=== PATIENT | male | born 1945 | race Caucasian/White ===

== ENCOUNTER 2018-11-02 08:24 | Inpatient (IN) | payer MEDICARE, OTHER ==
[2018-11-02] VITALS (7 sets, daily range): BP systolic 95–128; BP diastolic 59–88
[~2018-11-02] VITALS: Ht 188 cm; Wt 108.0 kg
--- NOTE | 2018-11-02 08:46 | NUR ---
Pt changing into gown sitting on gurlatricia. PARMINDER. windows migration technician at bedside. Pt's at bedside. Pt states, "I had a kidney transplant in 2010, it was a woman's kidney from [place], so now I cry at movies...". Pt denies cp, sob, n/v/d, syncope, or trauma. Pt states, "my arm (left arm) is swollen." Pt has fistula in place on left upper arm. Pt states, "it collapsed".
[2018-11-02] MEDS ORDERED: DILTIAZEM 5 MG/ML, 5ML IV ONE (09:00)
[2018-11-02] MEDS ORDERED: SODIUM CHLORIDE FLUSH 10ML SYR IVF ONE (09:00)
[2018-11-02] MEDS ORDERED: DILTIAZEM 5 MG/ML, 10ML ONE (09:05)
[2018-11-02 09:26] LABS: BASOPHILS # (AUTO) 0.05 x10^3/uL (0-0.1); BASOPHILS % (AUTO) 1 % (0-1); EOSINOPHILS # (AUTO) 0.26 x10^3/uL (0-0.4); EOSINOPHILS % (AUTO) 4 % (1-7); LYMPHOCYTES # (AUTO) 0.68 x10^3/uL (1-3.4); LYMPHOCYTES % (AUTO) 11 % (22-44); MD NO; MEAN CORPUSCULAR HEMOGLOBIN 31.4 pg (27.5-34.5); MEAN CORPUSCULAR VOLUME 98.1 fL (81-97); MEAN PLATELET VOLUME 9.1 fL (7.4-10.4); MONOCYTES # (AUTO) 0.62 x10^3/uL (0.2-0.8); MONOCYTES % (AUTO) 10 % (2-9); NEUTROPHILS # (AUTO) 4.69 x10^3/uL (1.8-6.8); NEUTROPHILS % (AUTO) 74 % (42-75); PLATELET COUNT 146 x10^3/uL (130-400); RED BLOOD COUNT 5.53 x10^6/uL (4.38-5.82); RED CELL DISTRIBUTION WIDTH 16.6 % (9.4-14.8)
[2018-11-02] MEDS ORDERED: PLEASE ENTER HEIGHT AND WEIGHT MC SCH (09:30)
[2018-11-02 09:34] LABS: ALANINE AMINOTRANSFERASE 49 U/L (12-78); ALBUMIN 4.1 g/dL (3.4-5.0); ANION GAP 8 mmol/L (5-15); CALCIUM 9.1 mg/dL (8.5-10.1); CHLORIDE 116 mmol/L (98-107)
[2018-11-02 09:35] LABS: D-DIMER 0.99 ug/mlFEU (0.00-0.52); INTERNATIONAL NORMALIZED RATIO 1.45 (0.93-1.1)
[2018-11-02 09:39] LABS: ALKALINE PHOSPHATASE 68 U/L (45-117); BILIRUBIN,TOTAL 1.4 mg/dL (0.2-1.0); CREATININE 1.79 mg/dL (0.7-1.3); TOTAL PROTEIN 6.6 g/dL (6.4-8.2)
[2018-11-02] MEDS ORDERED: SODIUM CHLORIDE 0.9% 1,000ML IVBOLUS ONE (10:30)
[2018-11-02] MEDS ORDERED: DIGOXIN 0.25 MG/ML, 2ML ONE (10:52)
[2018-11-02] MEDS ORDERED: DIGOXIN 0.25 MG/ML, 2ML IVPush ONE (11:00)
[2018-11-02] MEDS ORDERED: MYCO250C4 PO (11:11)
[2018-11-02] MEDS ORDERED: TACR1CAP4 PO (11:12)
[2018-11-02] MEDS ORDERED: SIMV40TA3 PO (11:13)
[2018-11-02] MEDS ORDERED: PRED5TAB PO (11:13)
[2018-11-02] MEDS ORDERED: METO25TA35 PO (11:13)
[2018-11-02] MEDS ORDERED: LISI40TA PO (11:14)
[2018-11-02] MEDS ORDERED: ASPI-650 PO (11:15)
[2018-11-02] MEDS ORDERED: AMLO-150 PO (11:15)
--- NOTE | 2018-11-02 11:24 | NUR ---
[facility] TELEPHONE HAND-OFF REPORT GIVEN TO DULCE YO.
[2018-11-02 12:02] LABS: TROPONIN I < 0.015 ng/mL (0.000-0.045)
--- NOTE | 2018-11-02 12:04 | NUR ---
Pt transfered to floor from ED and left with all personal belongings.
[2018-11-02] MEDS ORDERED: HEPARIN 5,000 UNITS/ML, 1ML IV PRN (12:30)
[2018-11-02] MEDS ORDERED: METOPROLOL 1 MG/ML, 5ML IVPush ONE ×2 (12:30→16:00)
[2018-11-02] MEDS ORDERED: HEPARIN 5,000 UNITS/ML, 1ML IV ONE (12:30)
[2018-11-02] MEDS: DIGOXIN 0.25 MG TABLET PO SCH (15:42)
[2018-11-02] MEDS: HEPARIN 25,000 UNITS/500ML PMX 500 ML IV PRN (15:42)
[2018-11-02 18:38] LABS: TROPONIN I < 0.015 ng/mL (0.000-0.045)
[2018-11-02] MEDS ORDERED: DILTIAZEM 5 MG/ML, 5ML IVPush ONE (19:00)
[2018-11-02] MEDS: METOPROLOL TARTRATE 25 MG TABLET PO SCH (21:17)
[2018-11-02] MEDS: TACROLIMUS 1 MG CAPSULE PO SCH (21:17)
[2018-11-02] MEDS: SIMVASTATIN 40 MG TABLET PO SCH (21:18)
[2018-11-03] MEDS ORDERED: DILTIAZEM 125 MG in SODIUM CHLORIDE 0.9% 100 ML IV SCH (00:30)
[2018-11-03 02:08] VITALS: BP 136/63
[2018-11-03 03:33] VITALS: BP 118/75
[2018-11-03] MEDS: DILTIAZEM 125 MG in SODIUM CHLORIDE 0.9% 100 ML IV SCH ×3 (05:00→23:36)
[2018-11-03] MEDS: ASPIRIN 81 MG TABLET EC PO SCH (06:14)
[2018-11-03 06:35] LABS: BASOPHILS # (AUTO) 0.05 x10^3/uL (0-0.1); BASOPHILS % (AUTO) 1 % (0-1); EOSINOPHILS # (AUTO) 0.28 x10^3/uL (0-0.4); EOSINOPHILS % (AUTO) 5 % (1-7); LYMPHOCYTES # (AUTO) 0.85 x10^3/uL (1-3.4); LYMPHOCYTES % (AUTO) 14 % (22-44); MD NO; MEAN CORPUSCULAR HEMOGLOBIN 31.7 pg (27.5-34.5); MEAN CORPUSCULAR HGB CONC 32.6 g/dL (33.2-36.2); MEAN CORPUSCULAR VOLUME 97.2 fL (81-97); MEAN PLATELET VOLUME 9.1 fL (7.4-10.4); MONOCYTES # (AUTO) 0.64 x10^3/uL (0.2-0.8); MONOCYTES % (AUTO) 10 % (2-9); NEUTROPHILS # (AUTO) 4.33 x10^3/uL (1.8-6.8); NEUTROPHILS % (AUTO) 70 % (42-75); PLATELET COUNT 147 x10^3/uL (130-400); RED BLOOD COUNT 5.15 x10^6/uL (4.38-5.82)
[2018-11-03 06:41] LABS: ALANINE AMINOTRANSFERASE 42 U/L (12-78); ALBUMIN 3.8 g/dL (3.4-5.0); ANION GAP 8 mmol/L (5-15); CALCIUM 8.6 mg/dL (8.5-10.1); CHLORIDE 120 mmol/L (98-107); CREATININE 1.48 mg/dL (0.7-1.3)
[2018-11-03 06:51] LABS: ALKALINE PHOSPHATASE 64 U/L (45-117); BILIRUBIN,TOTAL 1.3 mg/dL (0.2-1.0)
[2018-11-03 07:35] VITALS: BP 140/86
[2018-11-03] MEDS: TACROLIMUS 1 MG CAPSULE PO SCH ×2 (08:38→20:26)
[2018-11-03] MEDS: DIGOXIN 0.25 MG TABLET PO SCH (08:39)
[2018-11-03] MEDS: METOPROLOL TARTRATE 25 MG TABLET PO SCH ×2 (08:41→20:26)
[2018-11-03 13:33] VITALS: BP 138/82
[2018-11-03] MEDS: HEPARIN 25,000 UNITS/500ML PMX 500 ML IV PRN (13:48)
[2018-11-03 19:32] VITALS: BP 132/54
[2018-11-03] MEDS: SIMVASTATIN 40 MG TABLET PO SCH (20:26)
[2018-11-04 01:39] VITALS: BP 140/66
[2018-11-04] MEDS: ASPIRIN 81 MG TABLET EC PO SCH (05:46)
[2018-11-04 08:14] VITALS: BP 139/68
[2018-11-04] MEDS: DILTIAZEM 125 MG in SODIUM CHLORIDE 0.9% 100 ML IV SCH (08:22)
[2018-11-04] MEDS: TACROLIMUS 1 MG CAPSULE PO SCH ×2 (10:08→21:02)
[2018-11-04] MEDS: DIGOXIN 0.25 MG TABLET PO SCH (10:08)
[2018-11-04] MEDS: METOPROLOL TARTRATE 25 MG TABLET PO SCH ×2 (10:08→21:02)
[2018-11-04 12:52] VITALS: BP 132/76
[2018-11-04] MEDS: HEPARIN 25,000 UNITS/500ML PMX 500 ML IV PRN (16:24)
[2018-11-04 20:26] VITALS: BP 124/62
[2018-11-04] MEDS: SIMVASTATIN 40 MG TABLET PO SCH (21:02)
[2018-11-05] VITALS (11 sets, daily range): BP systolic 88–149; BP diastolic 48–86
[2018-11-05] MEDS ORDERED: MORPHINE SULFATE 4 MG/ML, 1ML IVPush ONE (01:30)
[2018-11-05] MEDS: DILTIAZEM 125 MG in SODIUM CHLORIDE 0.9% 100 ML IV SCH ×2 (02:20→14:36)
[2018-11-05 02:26] LABS: ALANINE AMINOTRANSFERASE 30 U/L (12-78); ALBUMIN 3.3 g/dL (3.4-5.0); ANION GAP 11 mmol/L (5-15); BASOPHILS # (AUTO) 0.04 x10^3/uL (0-0.1); BASOPHILS % (AUTO) 1 % (0-1); CALCIUM 8.3 mg/dL (8.5-10.1); CHLORIDE 119 mmol/L (98-107); CREATININE 1.27 mg/dL (0.7-1.3); EOSINOPHILS # (AUTO) 0.07 x10^3/uL (0-0.4); EOSINOPHILS % (AUTO) 1 % (1-7); LYMPHOCYTES # (AUTO) 0.52 x10^3/uL (1-3.4); LYMPHOCYTES % (AUTO) 6 % (22-44); MD NO; MEAN CORPUSCULAR HEMOGLOBIN 30.9 pg (27.5-34.5); MEAN CORPUSCULAR HGB CONC 32.1 g/dL (33.2-36.2); MEAN CORPUSCULAR VOLUME 96.4 fL (81-97); MEAN PLATELET VOLUME 9.1 fL (7.4-10.4); MONOCYTES # (AUTO) 0.79 x10^3/uL (0.2-0.8); MONOCYTES % (AUTO) 9 % (2-9); NEUTROPHILS # (AUTO) 7.44 x10^3/uL (1.8-6.8); NEUTROPHILS % (AUTO) 84 % (42-75); PLATELET COUNT 159 x10^3/uL (130-400); RED BLOOD COUNT 4.77 x10^6/uL (4.38-5.82); RED CELL DISTRIBUTION WIDTH 16.3 % (9.4-14.8)
[2018-11-05 02:28] LABS: ALKALINE PHOSPHATASE 58 U/L (45-117); BILIRUBIN,TOTAL 1.6 mg/dL (0.2-1.0); TOTAL PROTEIN 5.4 g/dL (6.4-8.2)
[2018-11-05 04:47] LABS: MEAN CORPUSCULAR HEMOGLOBIN 31.8 pg (27.5-34.5); MEAN CORPUSCULAR HGB CONC 32.9 g/dL (33.2-36.2); MEAN CORPUSCULAR VOLUME 96.7 fL (81-97); MEAN PLATELET VOLUME 8.9 fL (7.4-10.4); PLATELET COUNT 149 x10^3/uL (130-400); RED BLOOD COUNT 4.57 x10^6/uL (4.38-5.82); RED CELL DISTRIBUTION WIDTH 15.7 % (9.4-14.8)
[2018-11-05 04:48] LABS: BASOPHILS # (AUTO) 0.08 x10^3/uL (0-0.1); BASOPHILS % (AUTO) 1 % (0-1); EOSINOPHILS # (AUTO) 0.01 x10^3/uL (0-0.4); EOSINOPHILS % (AUTO) 0 % (1-7); LYMPHOCYTES # (AUTO) 0.47 x10^3/uL (1-3.4); LYMPHOCYTES % (AUTO) 5 % (22-44); MD NO; MONOCYTES % (AUTO) 7 % (2-9); NEUTROPHILS # (AUTO) 8.49 x10^3/uL (1.8-6.8); NEUTROPHILS % (AUTO) 87 % (42-75)
[2018-11-05] MEDS: DIGOXIN 0.25 MG TABLET PO SCH (10:17)
[2018-11-05] MEDS: METOPROLOL TARTRATE 25 MG TABLET PO SCH ×2 (10:17→22:45)
[2018-11-05] MEDS: PANTOPRAZOLE 40 MG IV IVPush SCH (10:17)
[2018-11-05] MEDS: TACROLIMUS 1 MG CAPSULE PO SCH ×2 (10:17→20:47)
[2018-11-05] MEDS: ASPIRIN 81 MG TABLET EC PO SCH (10:44)
[2018-11-05] MEDS ORDERED: DIGOXIN 0.25 MG/ML, 2ML IVPush ONE (11:00)
[2018-11-05] MEDS ORDERED: MORPHINE SULFATE 4 MG/ML, 1ML IVPush PRN (11:30)
[2018-11-05] MEDS ORDERED: DILTIAZEM 5 MG/ML, 5ML ONE (15:45)
[2018-11-05] MEDS ORDERED: DILTIAZEM 5 MG/ML, 5ML IVPush ONE (16:00)
[2018-11-05] MEDS: SIMVASTATIN 40 MG TABLET PO SCH (20:47)
[2018-11-06 01:01] VITALS: BP 109/75
[2018-11-06] MEDS: DILTIAZEM 125 MG in SODIUM CHLORIDE 0.9% 100 ML IV SCH ×2 (02:05→11:53)
[2018-11-06] MEDS ORDERED: DILTIAZEM 125 MG in SODIUM CHLORIDE 0.9% 100 ML IV SCH (04:00)
[2018-11-06] MEDS: ASPIRIN 81 MG TABLET EC PO SCH (05:34)
[2018-11-06] MEDS ORDERED: SODIUM CHLORIDE 0.9% 1,000 ML IV SCH (07:30)
[2018-11-06] MEDS: PANTOPRAZOLE 40 MG IV IVPush SCH (08:20)
[2018-11-06 08:22] VITALS: BP 140/65
[2018-11-06] MEDS: METOPROLOL TARTRATE 25 MG TABLET PO SCH ×2 (08:59→16:55)
[2018-11-06] MEDS: TACROLIMUS 1 MG CAPSULE PO SCH ×2 (08:59→21:30)
[2018-11-06] MEDS: DIGOXIN 0.25 MG TABLET PO SCH (08:59)
[2018-11-06 09:09] VITALS: BP 107/63
[2018-11-06] MEDS ORDERED: ONDANSETRON 4 MG TABLET PO PRN (09:30)
[2018-11-06] MEDS ORDERED: ACETAMINOPHEN 325 MG TABLET PO PRN (09:30)
[2018-11-06] MEDS: LACTOBACILLUS CHEW TABLET PO SCH ×3 (11:53→21:30)
[2018-11-06] MEDS: ONDANSETRON 2MG/ML, 2ML IVPush PRN ×2 (13:05→20:18)
[2018-11-06 14:00] VITALS: BP 124/52
[2018-11-06] MEDS ORDERED: CARVEDILOL 6.25 MG TABLET PO SCH (18:00)
[2018-11-06 20:00] VITALS: BP 129/70
[2018-11-06] MEDS: SIMVASTATIN 40 MG TABLET PO SCH (21:30)
[2018-11-07] MEDS: SODIUM CHLORIDE 0.9% 1,000 ML IV SCH ×2 (00:51→18:27)
[2018-11-07] MEDS: DILTIAZEM 125 MG in SODIUM CHLORIDE 0.9% 100 ML IV SCH ×2 (01:11→13:59)
[2018-11-07 02:00] VITALS: BP 123/74
[2018-11-07] MEDS: ASPIRIN 81 MG TABLET EC PO SCH (05:24)
[2018-11-07] MEDS: OMEPRAZOLE 20 MG CAPSULE.DR PO SCH (05:25)
[2018-11-07] MEDS: METOPROLOL TARTRATE 25 MG TABLET PO SCH ×2 (05:25→17:10)
[2018-11-07 08:00] VITALS: BP 106/69
[2018-11-07 08:40] VITALS: BP 119/63
[2018-11-07 10:19] LABS: ANION GAP 7 mmol/L (5-15); CHLORIDE 120 mmol/L (98-107)
[2018-11-07] MEDS: DIGOXIN 0.25 MG TABLET PO SCH (10:34)
[2018-11-07] MEDS: TACROLIMUS 1 MG CAPSULE PO SCH ×2 (10:40→20:36)
[2018-11-07] MEDS: LACTOBACILLUS CHEW TABLET PO SCH ×3 (10:40→20:36)
[2018-11-07 11:29] VITALS: BP 128/61
[2018-11-07 13:32] VITALS: BP 107/62
[2018-11-07 18:39] VITALS: BP 125/61
[2018-11-07] MEDS: SIMVASTATIN 40 MG TABLET PO SCH (20:36)
[2018-11-08 00:41] VITALS: BP 116/62
[2018-11-08] MEDS: DILTIAZEM 125 MG in SODIUM CHLORIDE 0.9% 100 ML IV SCH (01:00)
[2018-11-08] MEDS: morphine SULFATE 10 MG/ML, 1ML IVPush PRN (01:06)
[2018-11-08] MEDS: ASPIRIN 81 MG TABLET EC PO SCH (05:43)
[2018-11-08] MEDS: METOPROLOL TARTRATE 25 MG TABLET PO SCH ×2 (05:43→20:08)
[2018-11-08] MEDS: OMEPRAZOLE 20 MG CAPSULE.DR PO SCH (05:43)
[2018-11-08 06:35] VITALS: BP 101/66
[2018-11-08] MEDS: LACTOBACILLUS CHEW TABLET PO SCH ×3 (08:06→20:08)
[2018-11-08] MEDS: TACROLIMUS 1 MG CAPSULE PO SCH ×2 (08:06→20:09)
[2018-11-08 08:17] VITALS: BP 95/61
[2018-11-08] MEDS ORDERED: DIGOXIN 0.25 MG TABLET PO SCH (09:00)
[2018-11-08] MEDS: SODIUM CHLORIDE 0.9% 1,000 ML IV SCH (10:55)
[2018-11-08] MEDS ORDERED: DILTIAZEM 125 MG in SODIUM CHLORIDE 0.9% 100 ML IV SCH (12:30)
[2018-11-08] MEDS ORDERED: FILTER 0.22 MICRON FOR AMIODARONE IV PRN (13:00)
[2018-11-08] MEDS ORDERED: AMIODARONE 900 MG in DEXTROSE 5% 482 ML IV PRN (13:00)
[2018-11-08] MEDS ORDERED: AMIODARONE 150 MG in DEXTROSE 5% 100 ML IV ONE (13:00)
[2018-11-08 13:08] VITALS: BP 125/68
[2018-11-08] MEDS ORDERED: METOPROLOL TARTRATE 25 MG TABLET PO SCH (15:00)
[2018-11-08 19:16] VITALS: BP 123/72
[2018-11-08 20:01] VITALS: BP 133/65
[2018-11-08] MEDS: SIMVASTATIN 40 MG TABLET PO SCH (20:09)
[2018-11-09 01:39] VITALS: BP 138/78
[2018-11-09] MEDS: morphine SULFATE 10 MG/ML, 1ML IVPush PRN (02:19)
[2018-11-09 05:32] LABS: ANION GAP 8 mmol/L (5-15); CALCIUM 7.9 mg/dL (8.5-10.1); CHLORIDE 114 mmol/L (98-107); CREATININE 0.96 mg/dL (0.7-1.3)
[2018-11-09] MEDS: ASPIRIN 81 MG TABLET EC PO SCH (06:00)
[2018-11-09] MEDS: OMEPRAZOLE 20 MG CAPSULE.DR PO SCH (06:07)
[2018-11-09 06:55] VITALS: BP 121/79
[2018-11-09] MEDS: METOPROLOL TARTRATE 25 MG TABLET PO SCH ×2 (08:12→20:43)
[2018-11-09] MEDS: TACROLIMUS 1 MG CAPSULE PO SCH ×2 (08:13→20:42)
[2018-11-09] MEDS: LACTOBACILLUS CHEW TABLET PO SCH ×3 (08:15→20:41)
[2018-11-09] MEDS ORDERED: FUROSEMIDE 20 MG/2 ML IV ONE (10:00)
[2018-11-09 10:06] LABS: MEAN CORPUSCULAR HEMOGLOBIN 31.3 pg (27.5-34.5); MEAN CORPUSCULAR HGB CONC 32.3 g/dL (33.2-36.2); MEAN CORPUSCULAR VOLUME 96.9 fL (81-97); MEAN PLATELET VOLUME 8.3 fL (7.4-10.4); PLATELET COUNT 202 x10^3/uL (130-400); RED BLOOD COUNT 2.75 x10^6/uL (4.38-5.82); RED CELL DISTRIBUTION WIDTH 16.1 % (9.4-14.8)
[2018-11-09 10:15] VITALS: BP 125/84
[2018-11-09] MEDS: AMIODARONE 200 MG TABLET PO SCH ×2 (10:30→20:43)
[2018-11-09 11:20] LABS: <RBC MORPHOLOGY> NORMAL; ANISOCYTOSIS 1+; BASOPHILS # (AUTO) 0.01 x10^3/uL (0-0.1); BASOPHILS % (AUTO) 0 % (0-1); EOSINOPHILS % (AUTO) 4 % (1-7); LYMPHOCYTES # (AUTO) 0.52 x10^3/uL (1-3.4); LYMPHOCYTES % (AUTO) 7 % (22-44); MD MORPH REVIEW ONLY; MONOCYTES # (AUTO) 0.73 x10^3/uL (0.2-0.8); MONOCYTES % (AUTO) 9 % (2-9); NEUTROPHILS % (AUTO) 80 % (42-75); POLYCHROMASIA 1+
[2018-11-09 11:22] LABS: <PLATELET ESTIMATE> ADEQUATE; <PLT MORPHOLOGY> NORMAL PLT MORPH
[2018-11-09 13:01] VITALS: BP 126/86
[2018-11-09 20:15] VITALS: BP 120/77
[2018-11-09] MEDS: SIMVASTATIN 40 MG TABLET PO SCH (20:43)
[2018-11-10 01:15] VITALS: BP 122/78
[2018-11-10 06:08] LABS: BASOPHILS # (AUTO) 0.02 x10^3/uL (0-0.1); BASOPHILS % (AUTO) 0 % (0-1); EOSINOPHILS # (AUTO) 0.14 x10^3/uL (0-0.4); EOSINOPHILS % (AUTO) 2 % (1-7); LYMPHOCYTES # (AUTO) 0.48 x10^3/uL (1-3.4); LYMPHOCYTES % (AUTO) 6 % (22-44); MD NO; MEAN CORPUSCULAR HEMOGLOBIN 31.8 pg (27.5-34.5); MEAN CORPUSCULAR HGB CONC 32.7 g/dL (33.2-36.2); MEAN CORPUSCULAR VOLUME 97.4 fL (81-97); MEAN PLATELET VOLUME 7.3 fL (7.4-10.4); MONOCYTES # (AUTO) 0.86 x10^3/uL (0.2-0.8); MONOCYTES % (AUTO) 11 % (2-9); NEUTROPHILS # (AUTO) 6.24 x10^3/uL (1.8-6.8); NEUTROPHILS % (AUTO) 81 % (42-75); PLATELET COUNT 230 x10^3/uL (130-400); RED BLOOD COUNT 2.88 x10^6/uL (4.38-5.82); RED CELL DISTRIBUTION WIDTH 15.6 % (9.4-14.8)
[2018-11-10] MEDS: ASPIRIN 81 MG TABLET EC PO SCH (06:09)
[2018-11-10] MEDS: OMEPRAZOLE 20 MG CAPSULE.DR PO SCH (06:10)
[2018-11-10 06:20] LABS: ANION GAP 7 mmol/L (5-15); CALCIUM 7.9 mg/dL (8.5-10.1); CHLORIDE 113 mmol/L (98-107)
[2018-11-10 06:23] LABS: % IRON SATURATION 12 % (20-55); CREATININE 1.08 mg/dL (0.7-1.3); IRON LEVEL 38 mcg/dL (65-175); TOTAL IRON BINDING CAPACITY 320 mcg/dL (250-450)
[2018-11-10 06:45] VITALS: BP 138/83
[2018-11-10] MEDS ORDERED: LISINOPRIL 5 MG TABLET PO SCH (09:00)
[2018-11-10] MEDS ORDERED: OXYcodone IR 5MG TABLET PO PRN (09:00)
[2018-11-10] MEDS: LACTOBACILLUS CHEW TABLET PO SCH ×3 (09:41→21:39)
[2018-11-10] MEDS: METOPROLOL TARTRATE 25 MG TABLET PO SCH ×3 (09:42→21:38)
[2018-11-10] MEDS: AMIODARONE 200 MG TABLET PO SCH ×3 (09:43→21:33)
[2018-11-10] MEDS: TACROLIMUS 1 MG CAPSULE PO SCH ×2 (09:43→21:39)
[2018-11-10 14:58] VITALS: BP 108/62
[2018-11-10 16:34] VITALS: BP 136/79
[2018-11-10] MEDS: ONDANSETRON 2MG/ML, 2ML IVPush PRN (18:08)
[2018-11-10 19:57] VITALS: BP 126/74
[2018-11-10] MEDS: SIMVASTATIN 40 MG TABLET PO SCH (21:38)
[2018-11-11 00:43] VITALS: BP 114/66
[2018-11-11] MEDS: METOPROLOL TARTRATE 25 MG TABLET PO SCH ×4 (02:20→21:09)
[2018-11-11] MEDS: OMEPRAZOLE 20 MG CAPSULE.DR PO SCH (05:55)
[2018-11-11] MEDS: ASPIRIN 81 MG TABLET EC PO SCH (05:55)
[2018-11-11 06:45] VITALS: BP 111/70
[2018-11-11] MEDS: AMIODARONE 200 MG TABLET PO SCH ×3 (08:24→21:08)
[2018-11-11] MEDS: TACROLIMUS 1 MG CAPSULE PO SCH ×2 (08:24→21:09)
[2018-11-11] MEDS: LISINOPRIL 5 MG TABLET PO SCH (08:24)
[2018-11-11] MEDS: LACTOBACILLUS CHEW TABLET PO SCH ×3 (08:24→21:08)
[2018-11-11 11:04] LABS: BASOPHILS # (AUTO) 0.06 x10^3/uL (0-0.1); BASOPHILS % (AUTO) 1 % (0-1); EOSINOPHILS # (AUTO) 0.09 x10^3/uL (0-0.4); EOSINOPHILS % (AUTO) 1 % (1-7); LYMPHOCYTES % (AUTO) 3 % (22-44); MD NO; MEAN CORPUSCULAR HEMOGLOBIN 31.3 pg (27.5-34.5); MEAN CORPUSCULAR HGB CONC 32.2 g/dL (33.2-36.2); MEAN CORPUSCULAR VOLUME 97.3 fL (81-97); MEAN PLATELET VOLUME 7.5 fL (7.4-10.4); MONOCYTES # (AUTO) 0.68 x10^3/uL (0.2-0.8); MONOCYTES % (AUTO) 8 % (2-9); NEUTROPHILS # (AUTO) 7.69 x10^3/uL (1.8-6.8); NEUTROPHILS % (AUTO) 87 % (42-75); PLATELET COUNT 234 x10^3/uL (130-400); RED BLOOD COUNT 2.89 x10^6/uL (4.38-5.82); RED CELL DISTRIBUTION WIDTH 16.4 % (9.4-14.8)
[2018-11-11 11:12] LABS: ANION GAP 5 mmol/L (5-15); CALCIUM 7.9 mg/dL (8.5-10.1); CHLORIDE 112 mmol/L (98-107); CREATININE 0.99 mg/dL (0.7-1.3)
[2018-11-11] MEDS ORDERED: MAGNESIUM SULFATE PMX 2GM/50ML 50 ML IV ONE (12:00)
[2018-11-11] MEDS: DIGOXIN 0.125 MG TABLET PO SCH (15:07)
[2018-11-11 15:08] VITALS: BP 117/62
[2018-11-11 19:33] VITALS: BP 120/70
[2018-11-11] MEDS: SIMVASTATIN 40 MG TABLET PO SCH (21:09)
[2018-11-12 01:25] VITALS: BP 106/70
[2018-11-12] MEDS: METOPROLOL TARTRATE 25 MG TABLET PO SCH ×2 (03:16→09:28)
[2018-11-12 04:58] LABS: BASOPHILS # (AUTO) 0.01 x10^3/uL (0-0.1); BASOPHILS % (AUTO) 0 % (0-1); EOSINOPHILS % (AUTO) 1 % (1-7); LYMPHOCYTES # (AUTO) 0.45 x10^3/uL (1-3.4); LYMPHOCYTES % (AUTO) 5 % (22-44); MD NO; MEAN CORPUSCULAR HEMOGLOBIN 31.6 pg (27.5-34.5); MEAN CORPUSCULAR HGB CONC 32.6 g/dL (33.2-36.2); MEAN CORPUSCULAR VOLUME 97.2 fL (81-97); MEAN PLATELET VOLUME 7.5 fL (7.4-10.4); MONOCYTES # (AUTO) 0.91 x10^3/uL (0.2-0.8); MONOCYTES % (AUTO) 11 % (2-9); NEUTROPHILS # (AUTO) 7.15 x10^3/uL (1.8-6.8); NEUTROPHILS % (AUTO) 83 % (42-75); PLATELET COUNT 254 x10^3/uL (130-400); RED BLOOD COUNT 2.77 x10^6/uL (4.38-5.82); RED CELL DISTRIBUTION WIDTH 16.4 % (9.4-14.8)
[2018-11-12 05:08] LABS: ANION GAP 6 mmol/L (5-15); CALCIUM 7.7 mg/dL (8.5-10.1); CHLORIDE 112 mmol/L (98-107)
[2018-11-12 05:10] LABS: CREATININE 0.93 mg/dL (0.7-1.3)
[2018-11-12] MEDS: ASPIRIN 81 MG TABLET EC PO SCH (05:33)
[2018-11-12] MEDS: OMEPRAZOLE 20 MG CAPSULE.DR PO SCH (05:33)
[2018-11-12 07:07] VITALS: BP 132/57
[2018-11-12] MEDS ORDERED: MAGNESIUM SULFATE PMX 2GM/50ML 50 ML IV ONE (07:30)
[2018-11-12] MEDS: DIGOXIN 0.125 MG TABLET PO SCH (09:26)
[2018-11-12] MEDS: TACROLIMUS 1 MG CAPSULE PO SCH ×2 (09:27→20:03)
[2018-11-12] MEDS: AMIODARONE 200 MG TABLET PO SCH ×2 (09:27→20:03)
[2018-11-12] MEDS: LISINOPRIL 5 MG TABLET PO SCH (09:27)
[2018-11-12] MEDS: LACTOBACILLUS CHEW TABLET PO SCH ×3 (09:27→20:03)
[2018-11-12] MEDS ORDERED: FUROSEMIDE 20 MG/2 ML IV ONE (10:00)
[2018-11-12 12:24] VITALS: BP 130/50
[2018-11-12] MEDS ORDERED: METOPROLOL SUCCINATE 25 MG TAB.ER.24H PO SCH (18:00)
[2018-11-12] MEDS: METOPROLOL SUCCINATE 50 MG TAB.ER.24H PO SCH ×2 (18:16→20:03)
[2018-11-12] MEDS: SIMVASTATIN 40 MG TABLET PO SCH (20:03)
[2018-11-12 20:41] VITALS: BP 119/64
[2018-11-13 00:17] VITALS: BP 113/57
[2018-11-13] MEDS: OMEPRAZOLE 20 MG CAPSULE.DR PO SCH (05:41)
[2018-11-13] MEDS: ASPIRIN 81 MG TABLET EC PO SCH (05:42)
[2018-11-13 08:00] VITALS: BP 117/70
[2018-11-13] MEDS: LISINOPRIL 5 MG TABLET PO SCH (08:56)
[2018-11-13] MEDS: DIGOXIN 0.125 MG TABLET PO SCH (08:57)
[2018-11-13] MEDS: AMIODARONE 200 MG TABLET PO SCH (08:57)
[2018-11-13] MEDS: TACROLIMUS 1 MG CAPSULE PO SCH (08:57)
[2018-11-13] MEDS: LACTOBACILLUS CHEW TABLET PO SCH (08:57)
[2018-11-13] MEDS: METOPROLOL SUCCINATE 50 MG TAB.ER.24H PO SCH (08:58)
[2018-11-13] MEDS ORDERED: SPIRONOLACTONE 25 MG TABLET PO SCH (09:00)
[2018-11-13] MEDS ORDERED: LISI5TAB7 PO (12:34)
[2018-11-13] MEDS ORDERED: SPIR25TA PO (12:34)
[2018-11-13] MEDS ORDERED: ASPI81TA45 PO (12:34)
[2018-11-13] MEDS ORDERED: OMEP-110 PO (12:34)
[2018-11-13] MEDS ORDERED: AMIO200T42 PO (12:34)
[2018-11-13] MEDS ORDERED: METO-93 PO (12:34)
[2018-11-13] MEDS ORDERED: DIGO125T PO (12:34)
[2018-11-13] MEDS ORDERED: FERR-51 PO (14:24)
== END 2018-11-13 14:30 | disposition home or self-care (01) | DRG 682 ==
LOC: ED 11:14 → EDIP 11:15 → ED 11:25 → 5SO 11:47 → DCLOUNGE 11-13 14:25
PROVIDERS: ADMIT Family Medicine; ATTEND Family Medicine
DX: N17.0 Acute kidney failure with tubular necrosis (principal); J96.21 Acute and chronic respiratory failure with hypoxia; I42.0 Dilated cardiomyopathy; D68.69 Other thrombophilia; I50.42 Chronic combined systolic (congestive) and diastolic (congestive) heart failure; I48.1 Persistent atrial fibrillation; I48.92 Unspecified atrial flutter; J98.11 Atelectasis; Z94.0 Kidney transplant status; I13.0 Hypertensive heart and chronic kidney disease with heart failure and stage 1 through stage 4 chronic kidney disease, or unspecified chronic kidney disease; T45.1X5A Adverse effect of antineoplastic and immunosuppressive drugs, initial encounter; Z96.659 Presence of unspecified artificial knee joint; N18.9 Chronic kidney disease, unspecified; Y83.8 Other surgical procedures as the cause of abnormal reaction of the patient, or of later complication, without mention of misadventure at the time of the procedure; I48.91 Unspecified atrial fibrillation; I25.10 Atherosclerotic heart disease of native coronary artery without angina pectoris; I25.5 Ischemic cardiomyopathy; E66.9 Obesity, unspecified; R53.81 Other malaise; R29.6 Repeated falls; E78.5 Hyperlipidemia, unspecified; G47.00 Insomnia, unspecified; K76.89 Other specified diseases of liver; K80.20 Calculus of gallbladder without cholecystitis without obstruction; S30.1XXA Contusion of abdominal wall, initial encounter; X58.XXXA Exposure to other specified factors, initial encounter; Z95.5 Presence of coronary angioplasty implant and graft; Z68.30 Body mass index [BMI] 30.0-30.9, adult; I25.2 Old myocardial infarction; Y93.89 Activity, other specified; Y92.89 Other specified places as the place of occurrence of the external cause; Y99.8 Other external cause status; Z79.82 Long term (current) use of aspirin; Z79.899 Other long term (current) drug therapy; Z87.891 Personal history of nicotine dependence; Z99.2 Dependence on renal dialysis; Z99.81 Dependence on supplemental oxygen; T45.515A Adverse effect of anticoagulants, initial encounter; R58 Hemorrhage, not elsewhere classified
CPT/HCPCS: 36415; 36600; 71045; 74176; 74177; 76705; 78582; 80048; 80053; 80162; 80180; 80197; 82803; 83540; 83550; 83605; 83735; 83880; 84443; 84484; 85025; 85379; 85520; 85610; 85730; 93005; 93306; 93970; 96361; 96374; 96375; G0378; J1644; J2405; J7507; J7517; A9540; A9558; C9113; C9898; J0282; J1160; J1940; J2270; J3475; J7030; J7060; J7512

== ENCOUNTER → 2018-12-14 | Outpatient (CLI) | payer MEDICARE, OTHER ==
[~2018-12-14] MED LIST: AMIO200T42 PO; AMLO-150 PO; ASPI-650 PO; ASPI81TA45 PO; DIGO125T PO; FERR-51 PO; LISI40TA PO; LISI5TAB7 PO; METO-93 PO; METO25TA35 PO; MYCO250C4 PO; OMEP-110 PO; PRED5TAB PO; REGADENOSON 0.4 MG/5 ML SYRINGE ONE; SIMV40TA3 PO; SPIR25TA PO; TACR1CAP4 PO
== END | disposition home or self-care (01) ==
LOC: CFH 11:58
PROVIDERS: ATTEND Internal Medicine Cardiovascular Disease
DX: I25.10 Atherosclerotic heart disease of native coronary artery without angina pectoris (principal); I42.9 Cardiomyopathy, unspecified
CPT/HCPCS: 78452; 93017; A9502; J2785